=== PATIENT | female | born 1990 | race Caucasian/White ===

== ENCOUNTER 2016-06-01 17:01 | Emergency (ER) | payer OTHER ==
[2016-06-01] MEDS ORDERED: IBUPROFEN 600 MG TAB PO ONE (17:11)
--- NOTE | 2016-06-01 17:12 | EDPHY ---
H & P Time Seen by Provider: 06/01/16 17:04 Constitutional: Initial Vital Signs Temperature (C) 36.8 C 06/01/16 17:09 Heart Rate 100 06/01/16 17:09 Respiratory Rate 18 06/01/16 17:09 Blood Pressure 121/107 H 06/01/16 17:09 O2 Sat (%) 100 06/01/16 17:09 O2 Delivery Mode Room Air Allergies/Adverse Reactions: acetaminophen [From Percocet] Allergy (Verified 06/01/16 17:08) oxycodone [From Percocet] Allergy (Verified 06/01/16 17:08) Home Medications: Medication Instructions Recorded Cephalexin [Keflex] 500 mg PO QID #40 cap 11/03/12 Levonorgestrel-Ethin Estradiol 11/03/12 [Levora-28] Obcp 06/01/16 Medical Decision Making ED Course/Re-evaluation: CHIEF COMPLAINT: Right knee pain. HISTORY OF PRESENT ILLNESS: The patient is a 25-year-old female with a history of torn right ACL who presents with right knee pain that began earlier today. She was playing flag football when she stopped suddenly and felt immediate severe pain similar to the last time she tore it. The pain is worsened with movement. She denies other complaints. She has no weakness, numbness, or paresthesias. REVIEW OF SYSTEMS: A 10 point review of systems was performed and is negative with the exception of the elements mentioned in the history of present illness. PHYSICAL EXAM: HR, BP, O2 Sat, RR. Temp noted General Appearance: Alert, well hydrated, appropriate, and non-toxic appearing. Head: Atraumatic without scalp tenderness or obvious injury Eyes: Pupils equal, round, reactive to light and accommodation, EOMI, no trauma , no injection. Ears: Clear bilaterally, no perforation, normal landmarks Nose: Atraumatic, no rhinorrhea, clear. Throat: There is no erythema or exudates, no lesions, normal tonsils, mucus membranes moist. Neck: Supple, 2+ carotid upstroke, nontender, no lymphadenopathy. Respiratory: No retractions, no distress, no wheezes, and no accessory muscle use. Lungs are clear to auscultation bilaterally. Cardiovascular: Regular rate and rhythm, no murmurs, rubs, or gallops. Bilateral carotid, radial, dorsalis pedis, and posterior tibial pulses intact. Good capillary refill all extremities. Gastrointestinal: Abdomen is soft, nontender, non-distended, no masses, no rebound, no guarding, no peritoneal signs. Musculoskeletal: Normal active ROM of all extremities, atraumatic. Neurological: Alert, appropriate, and interactive. The patient has normal DTRs and non-focal cranial nerves, motor, sensory, and cerebellar exam. Skin: No rashes, good turgor, no nodules on palpation. Past medical history: Torn ACL. Past surgical history: ACL repair. Family history: N/A. Social history: [employer] Student. DIAGNOSTICS/PROCEDURES/CRITICAL CARE TIME: Study: MRI of the: Right knee. Indication: Trauma Results: Full ACL tear. The study was read by the radiologist, Dr. Hewitt. I viewed the images myself on the PACS system. DIFFERENTIAL DIAGNOSIS: The differential diagnosis includes but is not limited to knee sprain, knee strain, fracture, dislocation. MEDICAL DECISION MAKIN-year-old female presents with right knee pain secondary to stopping suddenly and pivoting during a flag football game. She does have a history of ACL tear in her right knee and this feels similar today. She has no other complaints. She is not complaining of numbness, weakness, or paresthesias and is neurovascularly intact distally. I have low suspicion for fracture. I have ordered a right knee MRI. I offered pain medication and she wants ibuprofen, declining narcotics due to nausea. 1915: Consulted with Dr. Ellison, orthopedics. He will see the patient in his office this week and wants her to wear her postoperative brace. I discussed this with the patient and answered her questions. She understands to follow up with Dr. Ellison. She is comfortable with the plan. I again offered narcotics but she declined and will take Ibuprofen. - Data Points Medications Given: Discontinued Medications Ibuprofen (Motrin) 600 mg PO EDNOW ONE Stop: 06/01/16 17:12 Last Admin: 06/01/16 17:16 Dose: 600 mg Departure - Departure Disposition: Home, Routine, Self-Care Clinical Impression: ACL tear Qualifiers: Encounter type: initial encounter Laterality: right Qualified Code(s): S83.511A - Sprain of anterior cruciate ligament of right knee, initial encounter Condition: Good Instructions: ACL Injury (ED) Additional Instructions: Wear your brace until you have followed up with Dr. Ellison. Call him tomorrow to set up a follow up appointment. Take 600mg Ibuprofen every 6-8 hours as needed for pain. Return to the emergency department for any serious worsening of condition. Referrals: Horacio Ellison MD [Primary Care Provider] - As per Instructions Report Scribed for: Matt Block Report Scribed by: Jeramy Farrell Date of Report: 06/01/16 Time of Report: 17:13
[2016-06-01 18:37] VITALS: O2SAT 98
[2016-06-01 19:59] VITALS: BP 152/96; PULSE 74; RESP 16; TEMP 98.1
== END 2016-06-01 19:58 | disposition home or self-care (01) ==
DX: S83.511A Sprain of anterior cruciate ligament of right knee, initial encounter (principal); X58.XXXA Exposure to other specified factors, initial encounter; Y92.321 Football field as the place of occurrence of the external cause; Y93.62 Activity, american flag or touch football